=== PATIENT | female | born 1965 | race Caucasian/White ===

== ENCOUNTER 2025-10-16 03:54 | Emergency (ER) | payer SELFPAY ==
[~2025-10-16] VITALS: Ht 160 cm; Wt 68.0 kg
[2025-10-16 03:56] VITALS: TEMP 98.4; O2SAT 97
[2025-10-16] MEDS: IBUPROFEN 600MG TABLET PO ONE (06:33)
[2025-10-16] MEDS ORDERED: IBUP-1455 MT (06:41)
[2025-10-16 06:50] VITALS: BP 157/47; PULSE 59; RESP 12; O2SAT 100
== END 2025-10-16 06:53 | disposition home or self-care (01) ==
LOC: ER 03:54
DX: M25.531 Pain in right wrist (principal); M25.562 Pain in left knee; I10 Essential (primary) hypertension; E03.9 Hypothyroidism, unspecified; W01.0XXA Fall on same level from slipping, tripping and stumbling without subsequent striking against object, initial encounter; Y93.01 Activity, walking, marching and hiking; Y92.89 Other specified places as the place of occurrence of the external cause; Y99.8 Other external cause status
CPT/HCPCS: 29125; 29260; 73110; 73130; 73562; 99284